=== PATIENT | male | born 1970 | race African-American/Black ===

== ENCOUNTER 2017-12-31 16:44 | Inpatient (IN) | payer BC ==
[~2017-12-31] VITALS: Ht 185.4 cm; Wt 86.2 kg
--- NOTE | ~2017-12-31 | PATH ---
[facility] [address] [address] PATHOLOGY RPT PROCEDURE Name: LUTHERJONN Room #: 216-P DIS IN M.R.#: [id number] Admission: 12/31/17 Date of : 70 Discharge: 01/03/18 Report #: [id number] Path Case #: [id number] [facility] Accession Number: [id number] . 01 Material submitted: . GASTRITIS R/O H PYLORI . 01 Clinical history: . Pre-OP DX: Atypical chest pain Post-OP DX: Gastritis, esophagitis . 02 Diagnosis: Gastric mucosa, gastritis rule out H. pylori, endoscopic biopsy: - [id number] reactive gastropathy. - Negative for intestinal metaplasia or atrophy. - Negative for Helicobacter pylori (properly controlled immunohistochemical stain performed). (IUV:grzegorz; 01/03/2018) QMS/01/03/2018 . 02 Electronically signed: . Griselda Bey MD, Pathologist NPI- [id number] . 01 Gross description: . Received in formalin labeled "Luther, Jonn, gastritis, rule out H. pylori," are 5 segments of carrasquillo soft tissue measuring 1.0 x 0.9 x 0.2 cm in aggregate dimensions and ranging from 0.2 to 0.4 cm in maximum dimension. The specimen is submitted entirely in cassette A1. (TSD; 01/02/2018) TOB/TOB . 02 Pathologist provided ICD-10: K31.9 . 02 CPT . 809534, L50260 Performed at: [address], [place] [id number] MD Bartolo Peters MD Phone: [phone] Performed at: [address] [id number] MD Griselda Bey MD Phone: [phone]
--- NOTE | ~2017-12-31 | HC ---
[facility] [place] [address] CONSULTATION Name: SHANNON POPE Room #: 216-P [facility] IN .R.#: [id number] Admission: 12/31/17 Attend Phys: Donn Kasper MD Discharge: Date of : 70 Report #: [id number] THIS REPORT FOR: //name// CC: [facility] physician/PCP Donn Kasper DATE OF SERVICE: 01/01/2018 CARDIOLOGY CONSULTATION INDICATION: Chest pain. HISTORY OF PRESENT ILLNESS: This is a 47-year-old gentleman with a history of hypertension, hyperlipidemia presenting with chest pains and dizziness. For the past week, he has been experiencing an intermittent discomfort on the left side of his chest, nonradiating. It seems to be more prevalent when he is at work, at the [employer]. It can last up to 20 minutes in duration. It comes and goes, with some lightheadedness and diaphoresis. There are no alleviating or aggravating factors. He does have a history of hypertension, noted to have an elevated blood pressure upon evaluation. He reports compliance with his blood pressure medications. He is also taking atorvastatin for hypercholesterolemia. There is no history of fever, chills, nausea or diarrhea. There is no history of PND or orthopnea. PAST MEDICAL HISTORY: Hypertension, hypercholesterolemia. ALLERGIES: None. MEDICATIONS: Lipitor for the past 2 months, HCTZ, lisinopril 40, Toprol and amlodipine. SOCIAL HISTORY: Denies tobacco use, uses marijuana occasionally. FAMILY HISTORY: Negative for premature CAD. REVIEW OF SYSTEMS: A full 10-point review of systems performed. Only the pertinent positives and negatives are described in the HPI. PHYSICAL EXAMINATION: VITAL SIGNS: Blood pressure is 145/90, heart rate is 99 beats per minute. GENERAL APPEARANCE: A well-developed, well-nourished male in no acute respiratory distress. HEAD AND EYES: Normocephalic. Sclerae are anicteric. ENT: Oral mucosa moist. NECK: Supple. LUNGS: CTA. [facility] [address] [place] [address] CONSULTATION Name: SHANNON POPE Room #: 216-[facility] IN ..#: [id number] Admission: 12/31/17 Attend Phys: Donn Kasper MD Discharge: Date of : 70 Report #: [id number] CARDIAC: Regular rate and rhythm, S1, S2 positive. ABDOMEN: Soft, nontender. EXTREMITIES: No cyanosis, no edema. NEUROLOGIC: Alert and oriented x 3. ECG reveals sinus rhythm, nonspecific T-wave abnormality. LABORATORY VALUES: Troponin levels are negative. AST and ALT are elevated. ASSESSMENT AND PLAN: 1. Chest pain syndrome, the differential diagnosis includes ischemia, musculoskeletal, neuropathy, GI, etc. His initial ECG and serial troponin levels have been unremarkable. However, he does have significant risk factors and will need to undergo stress testing. 2. Hypertensive urgency, the patient reports compliance with his medications. Plan is to continue with the SHERMAN inhibitor and diuretic. Once his ischemic workup has been completed, the plan is to change the beta alexus to carvedilol. 3. Hypercholesterolemia, tolerating Lipitor. However, the liver transaminases are elevated. Would hold for now until a GI evaluation has been completed. <ELECTRONICALLY SIGNED> By: Vamsi Osorio MD 01/02/18 0944 0832 1228 Vamsi Osorio MD /nt
--- NOTE | ~2017-12-31 | 2DMMODE ---
[facility] [address] [place] [address] 2 D/M-MODE ECHOCARDIOGRAM Name: SHANNON POPE Room #: 216-P [facility] IN [facility].#: [id number] Admission: 12/31/17 Attend Phys: Donn Kasper, Discharge: Date of : 70 Date of Service: 01/01/18 1123 Report #: [id number] THIS REPORT FOR: //name// APPROVED REPORT Study performed: 01/01/2018 08:54:50 EXAM: Comprehensive 2D, Doppler, and color-flow Echocardiogram Patient Location: Echo lab Room #: [facility] Status: routine BSA: 2.10 HR: 84 bpm BP: 158/108 mmHg Rhythm: NSR Other Information Study Quality: Good Indications Chest Pain Hypertension/HDD 2D Dimensions RVDd: 33.88 mm LVEF(%): 61.36 (>50%) IVSd: 14.98 (7-11mm) LVOT Diam: 24.31 (18-24mm) LVDd: 41.26 mm PWd: 12.96 (7-11mm) Ascending Ao: 28.91 (22-36mm) LVDs: 27.83 (25-40mm) Aortic Root: 32.36 mm IVC: 12.00 mm Apple's LVEF: 61.36 % Volumes Left Atrial Volume (Systole) Single Plane 4CH: 25.60 mL Single Plane 2CH: 44.94 mL LA ESV Index: 18.00 mL/m2 Aortic Valve AoV Peak Fausto.: 0.95 m/s AO Peak Gr.: 3.62 mmHg LVOT Max P.34 mmHg LVOT Max V: 0.76 m/s ROSENDA Vmax: 3.73 cm2 Mitral Valve E/A Ratio: 1.1 [facility] [place] [address] 2 D/M-MODE ECHOCARDIOGRAM Name: SHANNON POPE Room #: 216-[facility] IN ..#: [id number] Admission: 12/31/17 Attend Phys: Donn Kasper, Discharge: Date of : 70 Date of Service: 01/01/18 1123 Report #: [id number] MV Decel. Time: 178.54 ms MV E Max Fausto.: 0.56 m/s MV A Fausto.: 0.52 m/s MV PHT: 51.78 ms IVRT: 83.04 ms Pulmonary Valve PV Peak Fausto.: 1.00 m/s PV Peak Gr.: 3.99 mmHg Pulmonary Vein P Vein S: 0.74 m/s P Vein A: 0.53 m/s P Vein D: 0.53 m/s P Vein A Dur.: 101.5 msec P Vein S/D Ratio: 1.40 Left Ventricle The left ventricle is normal size. There is normal LV segmental wall motion. Mild concentric left ventricular hypertrophy. The left ventricular systolic function is normal. The left ventricular ejection fraction is within the normal range. LVEF is 60-65%. Grade I - abnormal relaxation pattern. Right Ventricle The right ventricle is normal size. The right ventricular systolic function is normal. Atria The left atrium size is normal. The right atrium size is normal. Aortic Valve The aortic valve is normal in structure. No aortic regurgitation is present. There is no aortic valvular stenosis. Mitral Valve The mitral valve is normal in structure. There is no mitral valve regurgitation noted. No evidence of mitral valve stenosis. Tricuspid Valve The tricuspid valve is normal in structure. There is no tricuspid valve regurgitation noted. Pulmonic Valve The pulmonary valve is normal in structure. There is no pulmonic valvular regurgitation. [facility] [employer] [address] [place] [address] 2 D/M-MODE ECHOCARDIOGRAM Name: NIKOSHANNON Room #: 216-P [facility]#: [id number] Admission: 12/31/17 Attend Phys: Donn Kasper, Discharge: Date of : 70 Date of Service: 01/01/18 1123 Report #: [id number] The aortic root is normal in size. IVC is normal in size and collapses >50% with inspiration. Pericardium There is no pericardial effusion. <Conclusion> The left ventricle is normal size. Mild concentric left ventricular hypertrophy. The left ventricular systolic function is normal. The right ventricle is normal size. The left atrium size is normal. The aortic valve is normal in structure. There is no mitral valve regurgitation noted. There is no tricuspid valve regurgitation noted. There is no pericardial effusion. <ELECTRONICALLY SIGNED> By: Vamsi Osorio MD 01/01/18 1123 1123 1123 Vamsi Osorio MD /INF
--- NOTE | ~2017-12-31 | EXE ---
[facility] [address] [place] [address] STRESS ECHOCARDIOGRAM Name: SHANNON POPE Kristie Room #: 216-P ADM IN M.R.#: [id number] Admission: 12/31/17 Attend Phys: Donn Kasper, Discharge: Date of : 70 Date of Service: 01/01/18 1129 Report #: [id number] THIS REPORT FOR: //name// APPROVED REPORT Study performed: 01/01/2018 09:24:22 Exam: Stress Echocardiogram Indication: Chest pain Patient Location: Echo lab Stress Nurse: Hayley Hogan RN Room #: 216 Status: routine Ht: 6 ft 1 in HR: 84 bpm BP: 158/108 mmHg Rhythm: NSR Medical History Medical History: HTN, Hyperlipidemia Procedure The patient underwent an Exercise Stress Test using the Gideon Protocol. Blood pressure, heart rate, and EKG were monitored. An Echocardiogram was performed by arcade technician in four stages in quad fashion. At peak stress, four selected images were obtained and placed side by side with resting images for comparison. Stress Test Details Stress Test: Exercise stress testing was performed using a Gideon protocol. HR Resting HR: 84 bpm Max Heart Rate (APMHR): 173 bpm Max HR Achieved: 164 bpm Target HR (85% APMHR): 147 bpm % of APMHR: 94 Recovery HR: 99 bpm HR response to stress: Normal HR response to stress BP Resting BP: 158/108 mmHg Max BP: 184/114 mmHg Recovery BP: 156/102 mmHg ECG Resting ECG: Sinus Rhythm, nonspecific ST-T [facility] [address] [place] [address] STRESS ECHOCARDIOGRAM Name: SHANNON POPE Room #: 216-P [facility].#: [id number] Admission: 12/31/17 Attend Phys: Donn Kasper, Discharge: Date of : 70 Date of Service: 01/01/18 1129 Report #: [id number] Stress ECG: Sinus Rhythm, nonspecific ST-T abnormalities ST Change: Non-ischemic Clinical Reason for Termination: Maximal effort Exercise duration: 7 min 30 sec Highest Stage Achieved: Stage 3: 3.4 mph at 14% grade. Exercise capacity: 10.1 METs Overall Exercise Capacity for Age: Average Pre-Stress Echo The resting Echocardiogram showed normal left ventricular contractility with an estimated Ejection Fraction of about 55-60%. Normal wall motion in all segments on baseline images. Post-Stress Echo The stress Echocardiogram showed normal left ventricular contractility with an estimated Ejection Fraction of about >70%. Normal augmentation of wall motion in all segments on post stress images. Clinical Normal augmentation of myocardial wall segments using a 17 segment model. No clinical or ECG evidence for ischemia. Conclusion Clinical Response: Non-ischemic Exercise Capacity: Average Stress ECG Response: Non-ischemic Stress Echo Images: Non-ischemic The left ventricle is normal in size and wall thickness in both the rest and stress images. Other Information Study Quality: Good <Conclusion> The left ventricle is normal in size and wall thickness in both the rest and stress images. <ELECTRONICALLY SIGNED> By: Vamsi Osorio MD 01/01/18 1129 1129 1129 Vamsi Osorio MD /INF
--- NOTE | ~2017-12-31 | P ---
[facility] [place] [address] PROCEDURE REPORT Name: SHANNON POPE Kristie Room #: 216-P [facility] IN ..#: [id number] Admission: 12/31/17 Attend Phys: Donn Kasper MD Discharge: 01/03/18 Date of : 70 Report #: [id number] THIS REPORT FOR: //name// CC: [facility] physician/PCP Donn Kasper DATE OF SERVICE: 01/02/2018 BRIEF HISTORY: The patient is a 47-year-old male with atypical chest pain. He also has poorly controlled high blood pressure. PREOPERATIVE DIAGNOSIS: Atypical chest pain. POSTOPERATIVE DIAGNOSES: 1. Grade B esophagitis. 2. Small sliding type hiatus hernia. 3. Diffuse gastritis. MEDICATIONS: Deep sedation with propofol per anesthesia. SPECIMEN: Biopsy of the gastritis. ESTIMATED BLOOD LOSS: 3 mL. PROCEDURE: EGD with biopsy. FINDINGS: Prior to propofol sedation, procedure of upper endoscopy discussed with the patient as well as potential risks and its complications. He indicates he understands and desires to proceed. DESCRIPTION OF PROCEDURE: With the patient in the left lateral decubitus position, the Olympus video endoscope was inserted in the cervical esophagus under direct vision without difficulty. Examination of this organ through its entire length revealed normal esophageal mucosa down the squamocolumnar junction. However, in the squamocolumnar junction, long erosions were seen extending the body of the esophagus consistent with a grade B esophagitis. No strictures or masses were seen. Cole mucosa was not seen. Intermittently, a small hiatus hernia was seen. The mucosa and hernia was normal. Scope was advanced in the stomach, was examined on end view as well as retroflexed views. There was a pattern of diffuse gastritis. There were no ulcers or erosions. There is no evidence of bleeding. Upon retroflexion, no mass lesions were seen. The mucosa in the proximal stomach was erythematous, but otherwise unremarkable. The pylorus, duodenal bulb and post-bulbar sweep down to the third portion were inspected and noted to be unremarkable. At that point, scope was slowly withdrawn and careful circumferential views confirmed the above finding. Biopsies obtained of the gastritis. The patient tolerated the [facility] [address] [place] [address] PROCEDURE REPORT Name: SHANNON POPE Room #: 216-P DIS IN M.R.#: [id number] Admission: 12/31/17 Attend Phys: Donn aKsper MD Discharge: 01/03/18 Date of : 70 Report #: [id number] procedure well. DISPOSITION: The patient with atypical chest pain. He clearly has significant esophagitis which may be the source of his chest pain. It is noted his gallbladder was normal on recent ultrasound. Continue pantoprazole at this point in time. He may require long-term or intermittent use of a PPI. The patient reports that his aunt of colon cancer in her early 50s. He has never had a colonoscopy. Suggest he return as an outpatient for screening colonoscopy. <ELECTRONICALLY SIGNED> By: Thee Humphreys MD 01/05/18 1740 1248 0355 Thee Humphreys MD /nt
--- NOTE | ~2017-12-31 | EKG ---
[place] [address] [address] [facility] [place] [address] ELECTROCARDIOGRAM REPORT Name: SHANNON POPE Room #: 216-P ADM IN M.R.#: [id number] Admission: 12/31/17 Attend Phys: Donn Kasper MD Discharge: Date of : 70 Report #: [id number] THIS REPORT FOR: //name// [facility] ED Test Date: 2017-12-31 Test Time: 16:58:18 Pat Name: SHANNON POPE Department: Room: 216 Gender: M Track Repairer: zulema : 1970 Requested By: Man Salas Order Number: [id number] MD: Eric Jones Measurements Intervals [place] Rate: 99 P: 71 AL: 113 QRS: 17 QRSD: 83 T: 12 QT: 351 QTc: 451 Interpretive Statements Sinus rhythm Nonspecific T wave abnormality No previous ECG available for comparison Electronically Signed On 01-01-2018 9:07:51 CDT by Eric Jones [email or web address] <ELECTRONICALLY SIGNED> By: Eric Jones MD, [facility] 01/01/18 0907 1658 1658 Eric Jones MD, FACC /EPI
[2017-12-31 16:44] VITALS: BP 230/145
[~2017-12-31 16:44] MED LIST: NOHOMEMEDICATIONS; NORCO 5-325 TA1 EACH PO
[2017-12-31 17:11] LABS: ABSOLUTE NEUTROPHILS 6.9 thou/uL (1.4-8.2); BASOPHILS 0.7 % (0.0-2.0); EOSINOPHILS 0.1 % (0.0-3.0); HEMATOCRIT 47.8 % (42.0-52.0); HEMOGLOBIN 16.4 gm/dL (14.0-18.0); LYMPHOCYTES 18.8 % (24.0-44.0); MCH 30.8 pg (26.0-34.0); MCHC 34.2 g/dL (28.0-37.0); MCV 89.9 fL (80.0-100.0); MONOCYTES 8.5 % (1.0-8.0); PLATELET COUNT 329 thou/uL (150-400); POLYS 71.9 % (36.0-66.0); RBC 5.32 mil/uL (4.50-6.00); RDW 14.5 % (10.5-14.5); WBC 9.6 thou/uL (4.0-11.0)
[2017-12-31] MEDS ORDERED: LISINOPRIL10 MG PO (17:20)
[2017-12-31] MEDS ORDERED: HYDROCHLOROTHIA25 M2 PO (17:20)
[2017-12-31 17:27] LABS: ANION GAP 14 mmol/L (7-16); BUN 12 mg/dL (7-18); CALCIUM 9.6 mg/dL (8.5-10.1); CHLORIDE 99 mmol/L (98-107); CO2 25 mmol/L (21-32); CREATININE 1.2 mg/dL (0.7-1.3); GLUCOSE 84 mg/dL (74-106); POTASSIUM 3.4 mmol/L (3.5-5.1); SODIUM 138 mmol/L (136-145)
[2017-12-31 17:36] LABS: ALBUMIN 4.6 g/dL (3.4-5.0); SGOT 107 U/L (15-37); SGPT 203 U/L (30-65); TOTAL PROTEIN 8.6 g/dL (6.4-8.2); TROPONIN-I <0.06 ng/mL (<0.06)
[2017-12-31 20:19] VITALS: BP 196/123
[2017-12-31 20:50] VITALS: BP 185/108
[2017-12-31 21:47] VITALS: BP 179/119
[2017-12-31 23:35] VITALS: BP 170/108
[2017-12-31] MEDS ORDERED: TOPROL XL50 MG PO (23:43)
[2017-12-31] MEDS ORDERED: AMLODIPINE BESY10 MG PO (23:43)
[2017-12-31 23:59] VITALS: BP 140/91
[2018-01-01] VITALS (14 sets, daily range): BP systolic 139–158; BP diastolic 18–123
[2018-01-01] MEDS ORDERED: LIPITOR10 MG PO (00:26)
[2018-01-01 05:20] LABS: ANION GAP 11 mmol/L (7-16); BUN 11 mg/dL (7-18); CALCIUM 9.1 mg/dL (8.5-10.1); CHLORIDE 97 mmol/L (98-107); CHOLESTEROL 229 mg/dL (<200); CO2 27 mmol/L (21-32); CREATININE 1.1 mg/dL (0.7-1.3); GLUCOSE 93 mg/dL (74-106); HDL CHOLESTEROL 62 mg/dL (>40); LDL CHOLESTEROL 151 mg/dL (<100); SODIUM 135 mmol/L (136-145); TC:HDL 3.7 Ratio (Not establshd); TRIGLYCERIDE 81 mg/dL (<150); TROPONIN-I <0.06 ng/mL (<0.06); VLDL 16 mg/dL (<40)
[2018-01-01 05:21] LABS: SERUM ASSESSMENT Clear
[2018-01-01 10:15] LABS: PROTIME 10.7 Seconds (9.3-11.4)
[2018-01-01 11:17] LABS: % SATURATION 88 % (20-39); IRON 269 ug/dL (65-175); TIBC 304 ug/dL (250-450)
[2018-01-01 23:06] LABS: IgG 1332 mg/dL (700-1600)
[2018-01-02 01:09] LABS: HAV IgM AB (ANTI-HAV IgM) Negative (Negative); HEPATITIS B SURFACE AG Negative (Negative); HEPATITIS C VIRUS AB 0.2 (0.0-0.9)
[2018-01-02 03:30] VITALS: BP 151/118
[2018-01-02 05:23] VITALS: BP 144/108
[2018-01-02 08:05] VITALS: BP 146/110
[2018-01-02 10:44] VITALS: BP 143/106
[2018-01-02 14:11] LABS: CERULOPLASMIN 21.9 mg/dL (16.0-31.0)
[2018-01-02] MEDS ORDERED: CARVEDILOL12.5 MG PO (16:11)
[2018-01-02] MEDS ORDERED: PANTOPRAZOLE SO40 M1 PO (16:12)
[2018-01-02 21:10] VITALS: BP 132/91
[2018-01-03 04:50] VITALS: BP 136/100
[2018-01-03 05:43] LABS: CALCIUM 9.4 mg/dL (8.5-10.1); CREATININE 1.7 mg/dL (0.7-1.3); POTASSIUM 3.6 mmol/L (3.5-5.1); TOTAL BILIRUBIN 0.9 mg/dL (<0.1-1.0); TOTAL PROTEIN 7.9 g/dL (6.4-8.2)
[2018-01-03 08:35] VITALS: BP 131/104
[2018-01-03 10:42] VITALS: BP 119/89
[2018-01-03 12:10] LABS: ANA INTERPRETATION Negative (Negative)
[2018-01-03] MEDS ORDERED: LIPITOR10 MG PO (12:56)
[2018-01-03] MEDS ORDERED: CARVEDILOL12.5 MG PO (12:56)
[2018-01-03] MEDS ORDERED: AMLODIPINE BESY10 MG PO (12:56)
[2018-01-03] MEDS ORDERED: LISINOPRIL10 MG PO (12:56)
[2018-01-03] MEDS ORDERED: HYDROCHLOROTHIA25 M2 PO (12:56)
[2018-01-03 13:03] VITALS: BP 119/89
[2018-01-03 14:08] VITALS: BP 119/89
== END 2018-01-03 13:19 | disposition home or self-care (01) | DRG 382 ==
LOC: ER 16:44 → EROBS 19:10 → 2N 19:10
PROVIDERS: Internal Medicine; Nurse Practitioner; Nurse Practitioner Family; Physician Assistant
PROC: 0DB68ZX Excision of Stomach, Via Natural or Artificial Opening Endoscopic, Diagnostic (ICD-10-PCS; principal; 2018-01-02)
DX: K22.10 Ulcer of esophagus without bleeding (principal); K29.70 Gastritis, unspecified, without bleeding; K44.9 Diaphragmatic hernia without obstruction or gangrene; I10 Essential (primary) hypertension; I16.0 Hypertensive urgency; D18.09 Hemangioma of other sites; E78.00 Pure hypercholesterolemia, unspecified; R74.0 Nonspecific elevation of levels of transaminase and lactic acid dehydrogenase [LDH]; K76.0 Fatty (change of) liver, not elsewhere classified; E78.5 Hyperlipidemia, unspecified; Z79.82 Long term (current) use of aspirin; Z79.899 Other long term (current) drug therapy; Z80.0 Family history of malignant neoplasm of digestive organs; Z90.49 Acquired absence of other specified parts of digestive tract
CPT/HCPCS: 10081; 62110; 62900; 70005

== ENCOUNTER → 2020-04-09 | Outpatient (CLI) | payer BC ==
[~2020-04-09] MED LIST changes: +AMLODIPINE BESY10 MG PO; +CARVEDILOL12.5 MG PO; +HYDROCHLOROTHIA25 M2 PO; +LIPITOR10 MG PO; +LISINOPRIL10 MG PO; +PANTOPRAZOLE SO40 M1 PO; +TOPROL XL50 MG PO
== END ==
LOC: LAB 14:15
PROVIDERS: ATTEND Family Medicine
DX: Z20.828 Contact with and (suspected) exposure to other viral communicable diseases (principal)